=== PATIENT | male | born 1965 | race Hispanic/Latino ===

== ENCOUNTER 2017-08-03 12:17 | Emergency (ER) | payer BC ==
[2017-08-03] MEDS ORDERED: LIDOCAINE 1% MPF 5 ML VIAL ONE (12:42)
--- NOTE | 2017-08-03 13:23 | ER ---
Nurse's Notes [facility] Name: Deep Villa Age: 51 yrs Sex: Male : 1965 Arrival Date: 08/03/2017 Time: 12:21 Bed 26 Private MD: None, None Diagnosis: Cutaneous abscess of left hand Presentation: 08/03 12:28 Presenting complaint: Patient states: I cut my finger 4 or 5 days ago, but i think it tw2 got infected, its right on the knuckle, LEFT 1st finger. Transition of care: patient was not received from another setting of care. Onset of symptoms was August 03, 2017. Initial Sepsis Screen: Does the patient meet any 2 criteria? No. Patient's initial sepsis screen is negative. Does the patient have a suspected source of infection? No. Patient's initial sepsis screen is negative. Care prior to arrival: None. 12:28 Method Of Arrival: Ambulatory tw2 12:28 Acuity: VIDHYA 3 tw2 Historical: - Allergies: 12:32 No Known Allergies; tw2 - Home Meds: 12:32 levemir, 40 units, 2xs day [Active]; metformin 500 mg Oral Tb24 1 tab 2 times per day tw2 [Active]; omega-3 fatty acids 1,000 mg oral cap [Active]; fenofibrate 40 mg oral tab 1 tab once daily [Active]; simvastatin 10 mg Oral tab 1 tab [Active]; aspirin 81 mg Oral chew 1 tab once daily [Active]; - PMHx: 12:32 Diabetes - IDDM; tw2 - PSHx: 12:32 None; tw2 - Immunization history:: Adult Immunizations up to date. - Social history:: Smoking status: Patient uses tobacco products, denies chronic smoking, but will smoke occasionally, Patient uses alcohol, occasionally. Screenin:37 Abuse screen: Denies threats or abuse. Denies injuries from another. Nutritional sv screening: No deficits noted. Tuberculosis screening: No symptoms or risk factors identified. Fall Risk None identified. Assessment: 12:35 General: Appears in no apparent distress. comfortable, well developed, Behavior is sv calm, cooperative, appropriate for age. Pain: Complains of pain in left hand Pain currently is 4 out of 10 on a pain scale. Pain began 4-5 days ago Is continuous. Neuro: Level of Consciousness is awake, alert, obeys commands, Oriented to person, place, time, situation, Moves all extremities. Full function Speech is normal. Cardiovascular: Patient's skin is warm and dry. Pulses are 3+ in right radial artery and left radial artery. Respiratory: Respiratory effort is even, unlabored, Respiratory pattern is regular, symmetrical. Derm: Skin is pink, warm \T\ dry. Musculoskeletal: Range of motion: intact in all extremities, Swelling present in dorsal aspect of distal phalanx of left index finger, dorsal aspect of middle phalanx of left index finger, dorsal aspect of proximal phalanx of left index finger and dorsum of left hand. Injury Description: Laceration sustained to left 2nd digit knuckle is contaminated, 0.5 to 2.5 cm long, not bleeding, swelling noted was sustained 4-5 days no active bleeding noted at this time. 13:10 Reassessment: Dr Escalante at bedside. sv 13:33 Reassessment: Patient appears in no apparent distress at this time. Patient and/or sv family updated on plan of care and expected duration. Pain level reassessed. Patient is alert, oriented x 3, equal unlabored respirations, skin warm/dry/pink. Vital Signs: 12:29 BP 130 / 91; Pulse 60; Resp 17; Temp 98.1(O); Pulse Ox 98% on R/A; Weight 88.45 kg (R); tw2 Height 5 ft. 9 in. (175.26 cm); Pain 4/10; 12:29 Body Mass Index 28.80 (88.45 kg, 175.26 cm) tw2 ED Course: 12:21 Patient arrived in ED. mr 12:22 None, None is Private Physician. mr 12:29 Triage completed. tw2 12:29 Arm band placed on. tw2 12:32 Linda Wood, DEANA is Primary Nurse. sv 12:34 Ryan Escalante MD is Attending Physician. gs 12:37 Patient has correct armband on for positive identification. Bed in low position. Call sv light in reach. Door closed. Head of bed elevated. 12:40 ED physician to see patient. sv 12:45 Assist provider with I \T\ D: Set up I\T\D tray. sv 13:10 Assist provider with I \T\ D: of an abscess on left 2nd digit Performed by Ryan diaz MD Dressing with bandaid Patient tolerated well. 13:21 Higinio Jaramillo MD is Referral Physician. 13:33 Patient did not have IV access during this emergency room visit. sv 16:32 Primary Nurse role handed off by Linda Wood RN Administered Medications: 13:10 Drug: Lidocaine (1 %) 5 ml {Note: given to Dr Escalante for procedure.} Volume: 5 ml; sv Route: Infiltration; 13:42 Follow up: Response: No adverse reaction sv Outcome: 13:22 Discharge ordered by . gs 13:33 Patient left the ED. sv 13:33 Discharged to home ambulatory. sv 13:33 Condition: stable 13:33 Discharge instructions given to patient, Instructed on discharge instructions, follow up and referral plans. medication usage, wound care, Demonstrated understanding of instructions, follow-up care, medications, wound care, Prescriptions given X 1. Signatures: Linda Wood, Sofy Ledbetter RN, Tara, RN RN 2 Ryan Escalante MD MD
--- NOTE | 2017-08-03 13:23 | EDPHYS ---
Physician Documentation [facility] Name: Deep Villa Age: 51 yrs Sex: Male : 1965 Arrival Date: 08/03/2017 Time: 12:21 Bed 26 Private MD: None, None ED Physician Ryan Escalante HPI: 08/03 13:37 This 51 yrs old Male presents to ER via Ambulatory with complaints of Infected gs Finger. 13:37 The patient presents with an abscess of the dorsal aspect of proximal phalanx of left gs index finger. Description: The affected area is very small, draining. Onset: The symptoms/episode began/occurred 2 day(s) ago. Possible cause(s): cut finger with knife got infected. Associated signs and symptoms: Pertinent negatives: erythema, fever. Modifying factors: the symptoms are aggravated by movement. Severity of symptoms: At their worst the symptoms were moderate, in the emergency department the symptoms are unchanged. The patient has not experienced similar symptoms in the past. Historical: - Allergies: 12:32 No Known Allergies; tw2 - Home Meds: 12:32 levemir, 40 units, 2xs day [Active]; metformin 500 mg Oral Tb24 1 tab 2 times per day tw2 [Active]; omega-3 fatty acids 1,000 mg oral cap [Active]; fenofibrate 40 mg oral tab 1 tab once daily [Active]; simvastatin 10 mg Oral tab 1 tab [Active]; aspirin 81 mg Oral chew 1 tab once daily [Active]; - PMHx: 12:32 Diabetes - IDDM; tw2 - PSHx: 12:32 None; tw2 - Immunization history:: Adult Immunizations up to date. - Social history:: Smoking status: Patient uses tobacco products, denies chronic smoking, but will smoke occasionally, Patient uses alcohol, occasionally. ROS: 13:37 All other systems are negative. gs Exam: 13:37 Constitutional: The patient appears alert, awake. gs 13:37 Musculoskeletal/extremity: ROM: limited active range of motion due to pain, limited passive range of motion due to pain, Circulation is intact in all extremities. Joints: the PIP of left index finger displays swelling, tenderness, drainage, involvement is cutaneous only over joint which is intact upon exploration. 13:37 Skin: cellulitis, is not appreciated. 13:37 Neuro: Exam negative for acute changes, focal neuro deficits. Vital Signs: 12:29 BP 130 / 91; Pulse 60; Resp 17; Temp 98.1(O); Pulse Ox 98% on R/A; Weight 88.45 kg (R); tw2 Height 5 ft. 9 in. (175.26 cm); Pain 4/10; 12:29 Body Mass Index 28.80 (88.45 kg, 175.26 cm) tw2 Procedures: 13:37 I \T\ D: Incision and drainage was performed for an abscess of the left dorsal aspect of gs middle phalanx of left index finger Prepped with Betadine, Anesthetized with 2 ml's 1% Lidocaine. digital block. Incised with #11 blade. Drained small amount purulent fluid. Dressing: non-Adherent dressing, the patient tolerated the procedure well. MDM: 12:39 Patient medically screened. 13:37 Differential diagnosis: abscess, cellulitis, with joint involvement and without. Data reviewed: vital signs, nurses notes. Administered Medications: 13:10 Drug: Lidocaine (1 %) 5 ml {Note: given to Dr Escalante for procedure.} Volume: 5 ml; sv Route: Infiltration; 13:42 Follow up: Response: No adverse reaction sv Disposition: 08/03/17 13:22 Discharged to Home. Impression: Cutaneous abscess of left hand. - Condition is Stable. - Discharge Instructions: Abscess, Incision and Drainage. - Prescriptions for Clindamycin HCl 300 mg Oral Capsule - take 1 capsule by ORAL route every 6 hours for 7 days; 28 capsule. - Work release form, Medication Reconciliation Form, Thank You Letter, Antibiotic Education, Prescription Opioid Use form. - Follow up: Higinio Jaramillo MD; When: 2 - 3 days; Reason: Re-evaluation by your physician. Signatures: Linda Wood, RN RN Alyssa Taylor RN RN tw2 Ryan Escalante MD MD
== END 2017-08-03 13:33 | disposition home or self-care (01) ==
LOC: ER 12:17
PROC: 0H9GXZZ Drainage of Left Hand Skin, External Approach (ICD-10-PCS; principal; 2017-08-03)
DX: L02.512 Cutaneous abscess of left hand (principal); Z72.0 Tobacco use; E11.9 Type 2 diabetes mellitus without complications; Z79.4 Long term (current) use of insulin; Z79.82 Long term (current) use of aspirin
CPT/HCPCS: 99283